=== PATIENT | female | born 1950 | race Caucasian/White ===

== ENCOUNTER 2018-04-08 18:50 | Emergency (ER) | payer OTHER ==
[~2018-04-08] VITALS: Ht 157.5 cm; Wt 81.8 kg
[2018-04-08 19:18] VITALS: BP 119/59
--- NOTE | 2018-04-08 19:20 | NUR ---
TO LOBBY A/W BED, ABUNDIO THORNTON, HIEN NOTED
--- NOTE | 2018-04-08 19:34 | NUR ---
PT PRESENTS TO ED WITH COUGH, FEVERS, AND GENERALZIED BODY ACHES X6 DAYS. PT STATES TAKING MEDICATIONS AT HOME FOR SYMPTOMS WITHOUT RELIEF. PT IS AFEBRILE. LUNGS CLEAR BILAT THROUGHOUT. AUDIBLE WHEEZING HEARD WITH COUGHING. O2SAT 96% AT RA. NO RESPIRATORY DISTRYESS OR C/O SOB OR DYSPNEA. POSITIONED IN BED WITH HOB ELEVATED. ER MD AWARE. CONTINUE TO MONITOR.
--- NOTE | 2018-04-08 19:34 | NUR ---
TO ER BED 4
[2018-04-08 20:48] VITALS: BP 121/66
--- NOTE | 2018-04-08 20:48 | NUR ---
Patient discharged with v/s stable. Written and verbal after care instructions given and explained. Patient alert, oriented and verbalized understanding of instructions. Ambulatory with steady gait. All questions addressed prior to discharge. ID band removed. Patient advised to follow up with PMD. Rx of Promethazine and Augmentin given. Patient educated on indication of medication including possible reaction and side effects. Opportunity to ask questions provided and answered.
== END 2018-04-08 20:48 | disposition home or self-care (01) ==
LOC: MED 18:50
DX: J40 Bronchitis, not specified as acute or chronic (principal)
CPT/HCPCS: 99283